=== PATIENT | female | born 1985 | race Caucasian/White ===

== ENCOUNTER 2018-06-13 08:38 | Emergency (ER) | payer OTHER ==
--- NOTE | 2018-06-13 10:01 | RAD ---
RIGHTS RIGHT SIDED GREATER/EQUAL TWO VIEWS STANDARD: History: Lateral chest wall pain. Comparison: 03-04-18 FINDINGS: No acute displaced right sided rib fracture. IMPRESSION: No acute displaced right sided rib fracture. POS: [facility]
--- NOTE | 2018-06-13 13:14 | ULT ---
RIGHT UPPER EXTREMITY VENOUS DUPLEX ULTRASOUND INCLUDING COLOR AND SPECTRAL DOPPLER IMAGING: History: 32-year-old female with history of right arm pain and right shoulder pain. Subclavian catheter is in place. FINDINGS: Right upper extremity including the right internal jugular vein, subclavian vein, axillary vein, brac hial vein, and radial and ulnar veins as well as the cephalic and basilic veins demonstrate no intral uminal thrombus. There is normal compressibility and augmentation. There is a catheter noted within t he right subclavian vein. IMPRESSION: No evidence for right upper extremity deep venous thrombosis. POS: [facility]
--- NOTE | 2018-06-13 18:01 | ULT ---
SOFT TISSUE ULTRASOUND: 06/13/18 HISTORY: Palpable mass near the scapula on the right side. Patient has bone cancer that was removed from her l eg several months ago. COMPARISON: None. TECHNIQUE: Targeted sonographic imaging of the region of concern is performed. Static images are reviewed. FINDINGS: Static images demonstrates normal soft tissue echotexture. No definite solid or cystic masses. Better interrogation with nonemergent MRI is recommended. IMPRESSION: As above. Consider nonemergent MRI. POS: [facility]
== END 2018-06-13 12:56 | disposition home or self-care (01) ==
LOC: ERS 08:38
DX: M96.841 Postprocedural hematoma of a musculoskeletal structure following other procedure (principal); F17.210 Nicotine dependence, cigarettes, uncomplicated; F41.9 Anxiety disorder, unspecified

== ENCOUNTER 2018-12-06 22:55 | Inpatient (IN) | payer BC ==
[2018-12-07 01:16] VITALS: BMI 25.9
[2018-12-07] MEDS ORDERED: Senokot S 8.6-50 MG TAB PO PRN (01:34)
[2018-12-07] MEDS: Cefepime 2 GM in Sodium Chloride 0.9% 100 ML IVPB SCH ×3 (02:06→17:47)
[2018-12-07] MEDS: Sodium Chloride 0.9% 1,000 ML IV SCH (02:07)
--- NOTE | 2018-12-07 02:26 | HP ---
CHIEF COMPLAINT: Fever. HISTORY OF PRESENT ILLNESS: The patient is a 33-year-old female with a history of osteosarcoma, currently getting chemotherapy at [facility]. The patient stated that she had a fever today of 102. She also has been feeling chills and has been having body aches and pains and also feeling fatigued. The patient stated that she also has some left-sided upper molar and lower molar teeth pain; however, she attributed that to her doxorubicin treatment. She denies any nausea, vomiting, any abdominal pain, any diarrhea, any cough or any dysuria. PAST MEDICAL HISTORY: She has a history of malignancy of osteosarcoma. She is currently on chemotherapy. Her last therapy was on Sunday in [facility] and she also received Neulasta. PAST SURGICAL HISTORY: She has had a dermoid cyst removed. She has had a history of C-sections and a history of orthopedic surgery of her right foot and a tonsillectomy. Also had a femur surgery in November of 2018. REVIEW OF SYSTEMS: All negative for the ones mentioned above in HPI. SOCIAL HISTORY: She denies any alcohol use, any drug use. She does smoke 1/4 pack per day. She is a full code. Lives with her family. ALLERGIES: SHE IS ALLERGIC TO ZOFRAN AND MORPHINE. MEDICATIONS: 1. She takes gabapentin 300 mg three times daily. 2. Multivitamin daily. PHYSICAL EXAMINATION: VITAL SIGNS: Temperature of 99.6, 100, pulse 106/65, 99% on room air. GENERAL: She is awake, alert, and oriented x3. Does not appear in distress. HEENT: Normocephalic, atraumatic. Pupils equal, react to light. She does have some pain upon palpation to her left maxillary area. She does have some sores underneath her tongue. She does have tongue ring. Some pain upon palpation to her left upper and lower molar teeth. CV: S1 and S2 present. No murmurs, rubs, or gallops. LUNGS: Clear to auscultation. No rhonchi or wheezes noted. ABDOMEN: Soft and nontender. Bowel sounds are present x2. EXTREMITIES: No edema. Pedal pulses are present x2. NEUROVASCULAR: No focal deficits noted. SKIN: She has some tattooing, otherwise no cuts, lesions, or bruises noted. LABORATORY RESULTS: WBCs of 0.5, hemoglobin of 10.6, hematocrit of 32.0, platelets are 16. Chemistries sodium of 136, potassium of 4.2, BUN of 19, creatinine 0.88. IMAGING: She had a chest x-ray in the ER, which did not show any acute abnormalities. ASSESSMENT AND PLAN: The patient is a very pleasant 33-year-old female who presents to the hospital with fever. 1. Neutropenic fever. The patient is currently on methotrexate and doxorubicin. Her last treatment was on Sunday. She also received a Neulasta on Sunday. The patient comes in with fever. She also has some pain on her left upper molar and left lower molar, other than that no source of infection that has been noted. We will start her on cefepime and vancomycin. If her pain worsens, may consider getting a CT of the facial or also a panoramic CT to get a better view of her teeth. Blood cultures were sent. Urine did not show any acute abnormalities. Chest x-ray was normal. Blood cultures are again pending. 2. Thrombocytopenia that is her baseline. However, in 2018, her platelets were 39; however, currently 16 and she does not get transfusions until she was less than 10. 3. Leukopenia. Most likely secondary to most likely secondary to her chemotherapy. We will continue to monitor. 4. Deep venous thrombosis prophylaxis. We will put the patient on some sequential compression devices. 5. I will also start her on some IV fluids and continue to monitor her. Job ID: [id number]
[2018-12-07] MEDS: Vancomycin HCl 1 GM in Premix Bag 1 BAG IVPB SCH ×2 (04:11→14:15)
[2018-12-07] MEDS: Acetaminophen 325 MG TAB PO PRN ×3 (04:22→21:24)
[2018-12-07] MEDS ORDERED: Promethazine HCl 25 MG/ML VIAL IM/IV PRN (04:34)
[2018-12-07 04:47] LABS: Hemoglobin 9.8 g/dL (12.0-16.0); Mean Corpuscular HGB CONC 34.3 g/dL (32.0-36.0); Mean Corpuscular Hemoglobin 33.1 pg (27.0-31.0); Mean Corpuscular Volume 96.5 fL (78.0-98.0); Platelet Count 12 thou/uL (130-400); RBC Distribution Width 14.2 % (11.5-14.5); Red Blood Cell (RBC) Count 2.95 mill/uL (4.20-5.40); Reflex for Review?? NO; White Blood Cell (WBC) Count 0.4 thou/uL (4.8-10.8)
[2018-12-07 05:00] LABS: Anion Gap 11 mmol/L (10-20); BUN (Urea Nitrogen) 17 mg/dL (7.0-18.7); Calc. Creatinine Clearance 90 mL/min (70-130); Calcium 9.1 mg/dL (7.8-10.44); Carbon Dioxide 25 mmol/L (22-29); Chloride 105 mmol/L (98-107); Estimated GFR-MDRD 72; Glucose 112 mg/dL (70-105); Potassium 4.6 mmol/L (3.5-5.1); Sodium 136 mmol/L (136-145)
[2018-12-07 05:06] LABS: Hypochromia SLIGHT = 6-15 cells (100X) (0-5/hpf); MDiff Complete? YES; Platelet Morphology Comment Appears Decreased
[2018-12-07] MEDS ORDERED: Enoxaparin Sodium 40 MG/0.4 ML SYRINGE SC SCH (09:00)
[2018-12-07] MEDS ORDERED: Vancomycin HCl 1 GM in Premix Bag 1 BAG IVPB SCH (09:00)
[2018-12-07] MEDS ORDERED: Prevnar 13-Val Conj/PF 0.5 ML SYRINGE IM ONE (09:00)
[2018-12-07] MEDS: Gabapentin 300 MG CAP PO SCH ×3 (09:07→21:24)
[2018-12-07] MEDS: Multivit, Therapeutic 1 TAB PO SCH (09:07)
--- NOTE | 2018-12-07 11:15 | PDOC.PN ---
- Subjective Encounter Start Date: 12/07/18 Encounter Start Time: 11:12 Patient seen and examined, no new issues or complaints, all questions answered. - Objective Resuscitation Status - Order Detail: 12/07/18 01:34 Resuscitation Status Routine Resuscitation Status: FULL: Full Resuscitation Vital Signs & Weight: Vital Signs (12 hours) Temp Pulse Resp BP Pulse Ox 12/07/18 08:00 99.0 F 106 H 16 98/61 96 12/07/18 07:00 98.7 F 12/07/18 01:11 98.4 F 120 H 18 111/58 L 96 Weight Weight 142 lb 1 oz I&O: 12/06/18 12/07/18 12/08/18 06:59 06:59 06:59 Intake Total 200 Balance 200 Result Diagrams: 12/07/18 04:28 12/07/18 04:28 Phys Exam - Physical Examination Constitutional: NAD HEENT: PERRLA, moist MMs, sclera anicteric Neck: no nodes, no JVD, supple Respiratory: no wheezing, no rales, no rhonchi Cardiovascular: RRR, no significant murmur, no rub Gastrointestinal: soft, non-tender, no distention Musculoskeletal: no edema, pulses present Dx/Plan (1) Neutropenia Code(s): D70.9 - NEUTROPENIA, UNSPECIFIED Status: Acute (2) Neutropenic fever Code(s): D70.9 - NEUTROPENIA, UNSPECIFIED; R50.81 - FEVER PRESENTING WITH CONDITIONS CLASSIFIED ELSEWHERE Status: Acute (3) Osteosarcoma Code(s): C41.9 - MALIGNANT NEOPLASM OF BONE AND ARTICULAR CARTILAGE, UNSP Status: Acute - Plan * dental pain improved * afebrile * on abx * cultures pending * repeat labs in AM * will adjust plan of care based on work up results * case and plan d/w patient at length, she understood and agreed with this plan.
--- NOTE | 2018-12-07 17:49 | CT ---
EXAM: CT Neck Soft Tissue WO Con PROVIDED CLINICAL HISTORY: Neck and jaw pain. Swelling. Symptoms greater on left. COMPARISON: None FINDINGS: This examination is limited secondary to the lack of intravenous contrast. The bilateral parotid and submandibular glands demonstrate a grossly normal nonenhanced CT appearance . There is a subcentimeter hypodense nodule within the right lobe of the thyroid gland which cannot be further characterized on this exam. The prevertebral, retropharyngeal, and bilateral carotid spaces have a grossly normal nonenhanced CT appearance. The pharynx and hypopharynx demonstrate a grossly normal nonenhanced appearance. No enlarged lymph nodes or mass is seen within the neck bilaterally. A right subclavian central venous catheter is noted in place. The tip is not visualized, but the dist al portion of the catheter is seen within the SVC. There is mild atelectasis present in the visualized upper lung zones. No discrete pulmonary nodule or mass is visualized. The osseous structures demonstrate a normal CT appearance. There are subcentimeter increased density foci seen within the posterior aspect left mandible in the region of the angle of the mandible with subtle surrounding lucency. Findings may represent unerupted wisdom teeth.. IMPRESSION: 1. Limited examination due to the lack of intravenous contrast, but no definite acute findings are se en in the neck. No enlarged lymph nodes or mass is seen. 2. Subcentimeter hypodense nodule right lobe of the thyroid gland.
[2018-12-07 20:40] LABS: Vancomycin, Trough 30.9 ug/mL
[2018-12-08] MEDS: Acetaminophen 325 MG TAB PO PRN ×3 (02:45→15:27)
[2018-12-08] MEDS: Sodium Chloride 0.9% 1,000 ML IV SCH ×2 (02:46→22:34)
[2018-12-08] MEDS: Cefepime 2 GM in Sodium Chloride 0.9% 100 ML IVPB SCH ×3 (02:46→19:22)
[2018-12-08 04:26] LABS: Hemoglobin 9.1 g/dL (12.0-16.0); Mean Corpuscular HGB CONC 34.2 g/dL (32.0-36.0); Mean Corpuscular Hemoglobin 33.1 pg (27.0-31.0); Mean Corpuscular Volume 96.6 fL (78.0-98.0); Mean Platelet Volume 9.3 fL (7.4-10.4); Platelet Count 6 thou/uL (130-400); RBC Distribution Width 13.7 % (11.5-14.5); Red Blood Cell (RBC) Count 2.74 mill/uL (4.20-5.40); White Blood Cell (WBC) Count 0.5 thou/uL (4.8-10.8)
--- NOTE | 2018-12-08 04:35 | PDOC.EVN ---
Event Note - Event Note Event Note: RN called for low platelets. Transfuse 1 unit apheretic platelets.
[2018-12-08 04:41] LABS: Anion Gap 8 mmol/L (10-20); BUN (Urea Nitrogen) 19 mg/dL (7.0-18.7); Calc. Creatinine Clearance 87 mL/min (70-130); Calcium 8.9 mg/dL (7.8-10.44); Carbon Dioxide 26 mmol/L (22-29); Chloride 107 mmol/L (98-107); Estimated GFR-MDRD 69; Glucose 111 mg/dL (70-105); Potassium 4.3 mmol/L (3.5-5.1); Sodium 137 mmol/L (136-145)
[2018-12-08 04:48] LABS: Hypochromia SLIGHT = 6-15 cells (100X) (0-5/hpf); MDiff Complete? YES; Platelet Morphology Comment Appears Decreased
[2018-12-08] MEDS: Multivit, Therapeutic 1 TAB PO SCH (08:08)
[2018-12-08] MEDS: Gabapentin 300 MG CAP PO SCH ×3 (08:08→21:22)
--- NOTE | 2018-12-08 14:17 | PDOC.PN ---
- Subjective Encounter Start Date: 12/08/18 Encounter Start Time: 14:14 Patient seen and examined, states her left jaw is continuing to hurt, no other issues or complaints. Patient seen and examined, all questions answered. - Objective Resuscitation Status - Order Detail: 12/07/18 01:34 Resuscitation Status Routine Resuscitation Status: FULL: Full Resuscitation Vital Signs & Weight: Vital Signs (12 hours) Temp Pulse Resp BP Pulse Ox 12/08/18 12:10 98.6 F 96 18 101/63 93 L 12/08/18 08:00 98.8 F 98 18 98/57 L 98 Weight Weight 142 lb 1 oz I&O: 12/07/18 12/08/18 12/09/18 06:59 06:59 06:59 Intake Total 200 1600 0 Balance 200 1600 0 Result Diagrams: 12/08/18 03:50 12/08/18 03:50 Phys Exam - Physical Examination Constitutional: NAD HEENT: PERRLA, moist MMs, sclera anicteric left side petiechial lesions on inner cheek left jaw appears slightly swollen Neck: no nodes, no JVD, supple Respiratory: no wheezing, no rales, no rhonchi Cardiovascular: RRR, no significant murmur, no rub Gastrointestinal: soft, non-tender, no distention Musculoskeletal: no edema, pulses present Dx/Plan (1) Neutropenia Code(s): D70.9 - NEUTROPENIA, UNSPECIFIED Status: Acute (2) Neutropenic fever Code(s): D70.9 - NEUTROPENIA, UNSPECIFIED; R50.81 - FEVER PRESENTING WITH CONDITIONS CLASSIFIED ELSEWHERE Status: Acute (3) Osteosarcoma Code(s): C41.9 - MALIGNANT NEOPLASM OF BONE AND ARTICULAR CARTILAGE, UNSP Status: Acute - Plan * Patient continues to have jaw pain, will obtain MRI to evaluate for soft tissue damage * BP stable * cont abx for now * platelets low, given platelets overnight * repeat labs in AM * cont neutropenic precautions, WBC count at 0.6 from 0.4 * Patient advised to email her main oncologist at [facility] as the patient would benefit from transfer to [facility] at this point, will see if this is possible to be done tomorrow as today is a sunday * case and plan d/w patient at length, she understood and agreed with this plan.
[2018-12-08] MEDS: Vancomycin HCl 1 GM in Premix Bag 1 BAG IVPB SCH (21:21)
[2018-12-09] MEDS: Sodium Chloride 0.9% 1,000 ML IV SCH ×2 (00:15→19:53)
[2018-12-09] MEDS: Guaifenesin DM 100-10/5 ML UDCUP PO PRN ×2 (00:23→16:52)
[2018-12-09] MEDS: Cefepime 2 GM in Sodium Chloride 0.9% 100 ML IVPB SCH ×3 (02:16→19:26)
[2018-12-09 04:47] LABS: Hemoglobin 8.8 g/dL (12.0-16.0); Mean Corpuscular HGB CONC 33.2 g/dL (32.0-36.0); Mean Corpuscular Volume 96.5 fL (78.0-98.0); Mean Platelet Volume 7.6 fL (7.4-10.4); Platelet Count 33 thou/uL (130-400); RBC Distribution Width 13.7 % (11.5-14.5); Red Blood Cell (RBC) Count 2.76 mill/uL (4.20-5.40); White Blood Cell (WBC) Count 0.9 thou/uL (4.8-10.8)
[2018-12-09 04:59] LABS: Anion Gap 10 mmol/L (10-20); BUN (Urea Nitrogen) 13 mg/dL (7.0-18.7); Calc. Creatinine Clearance 89 mL/min (70-130); Calcium 9.6 mg/dL (7.8-10.44); Carbon Dioxide 28 mmol/L (22-29); Chloride 105 mmol/L (98-107); Estimated GFR-MDRD 71; Glucose 144 mg/dL (70-105); Potassium 3.9 mmol/L (3.5-5.1); Sodium 139 mmol/L (136-145)
[2018-12-09 05:10] LABS: Band 8 % (5-11); Eosinophils 4 % (0-10); Lymphocytes 60 % (21-51); MDiff Complete? YES; Monocytes 4 % (0-10); Neutrophil 24 % (42-75); Platelet Morphology Comment Appears Decreased
[2018-12-09] MEDS: Multivit, Therapeutic 1 TAB PO SCH (08:29)
[2018-12-09] MEDS: Gabapentin 300 MG CAP PO SCH ×3 (08:29→20:14)
[2018-12-09] MEDS: Vancomycin HCl 1 GM in Premix Bag 1 BAG IVPB SCH ×2 (08:30→20:14)
--- NOTE | 2018-12-09 12:56 | MRI ---
MRI NECK WITH AND WITHOUT CONTRAST: DATE: 12/09/2018 HISTORY: 33-year-old female with neutropenic patient with left jaw pain and swelling. Rule out abscess. FINDINGS: At the posterior aspect of the left mandibular body at the mandibular angle, there is an approximatel y 7 x 4 x 3 mm smoothly circumscribed oval mass with signal void on all pulse sequences, consistent with single root of an unerupted molar, presumably lower wisdom tooth. The other root and the crown a re absent. This is surrounded by a circumferential halo of hyperintense T2 signal and enhancement. Slightly posterior and slightly lateral to that, there is another mass of signal void that measures a pproximately 8 x 7 x 7 mm entirely embedded in the bone of the left mandibular posterior body-angle. This is also surrounded by a halo of T2 hyperintense signal and enhancement. This is prob ably another unerupted, malformed molar tooth. This halo of inflammation probably communicates through a tiny osseous cortical defect at the lingual side of the mandible to the adjacent submandibular space where there is a very small pocket of abnormal enhancement and hyperintense T2 signal. Anterior to that, there is a 7 x 9 x 12 mm inflamed left submandibular lymph node (level 1B) that is T2 hyperintense and enhances strongly. There is a thin layer of hyperintense T2 signal and enhancement abutting a broad length of buccal sandra e cortex of the left mandibular body. The bilateral submandibular glands themselves, sublingual space, parapharyngeal space, parotid space, parapharyngeal space, pharyngeal mucosal space, retropharyngeal space, and posterior cervical space, are normal. No drainable abscess. No other lymphadenopathy. IMPRESSION: Evidence for odontogenic inflammatory (presumably infectious) process involving both the buccal side and luminal side of the left mandible, related to 2 unerupted odontoid bodies entirely embedded within the mandible. One of them has the configuration of a single root (fragment ?)of a molar tooth, while the other appears malformed or hypoplastic. See above details.
--- NOTE | 2018-12-09 15:25 | PDOC.PN ---
- Subjective Encounter Start Date: 12/09/18 Encounter Start Time: 15:24 Subjective: feels well. no new complaint. eager to go home -: feels that she has mucositis inner cheeck near tooth R side - Objective Resuscitation Status - Order Detail: 12/07/18 01:34 Resuscitation Status Routine Resuscitation Status: FULL: Full Resuscitation MAR Reviewed: Yes Vital Signs & Weight: Vital Signs (12 hours) Temp Pulse Resp BP Pulse Ox 12/09/18 12:00 98.1 F 98 18 112/59 L 93 L 12/09/18 08:15 98.0 F 85 18 100/54 L 92 L 12/09/18 08:00 92 L 12/09/18 04:36 97 12/09/18 04:25 99.1 F 104 H 16 93/55 L 89 L Weight Weight 142 lb 1 oz I&O: 12/08/18 12/09/18 12/10/18 06:59 06:59 06:59 Intake Total 1600 1900 Balance 1600 1900 Result Diagrams: 12/09/18 04:30 12/09/18 04:30 Additional Labs: Microbiology 12/06/18 19:12 Venous blood - Left Arm Blood Culture - Preliminary NO GROWTH AT 48 HOURS 12/06/18 19:00 Venous blood - Right Arm Blood Culture - Preliminary NO GROWTH AT 48 HOURS Laboratory Tests 12/07/18 12/08/18 12/09/18 04:28 03:50 04:30 WBC 0.4 L* 0.5 L* 0.9 L* Plt Count 12 L* 6 L* 33 L Radiology Reviewed by me: Yes (MRI jaw-left mandibular inflammation w unerupted odontoid) Phys Exam - Physical Examination Constitutional: NAD HEENT: PERRLA, moist MMs, sclera anicteric, oral pharynx no lesions no mucosal lesions. mild gum swelling R molar in the back Neck: no nodes, no JVD, supple, full ROM Respiratory: no wheezing, no rales, no rhonchi, clear to auscultation bilateral Cardiovascular: RRR, no significant murmur, no rub Gastrointestinal: soft, non-tender, no distention, positive bowel sounds Musculoskeletal: no edema, pulses present Neurological: non-focal, normal sensation, moves all 4 limbs Psychiatric: normal affect, A&O x 3 Skin: no rash Dx/Plan (1) Neutropenic fever Code(s): D70.9 - NEUTROPENIA, UNSPECIFIED; R50.81 - FEVER PRESENTING WITH CONDITIONS CLASSIFIED ELSEWHERE Status: Acute Comment: Clinically better. cont Empiric IV ABx.On vanco and Cefepime (2) Neutropenia Code(s): D70.9 - NEUTROPENIA, UNSPECIFIED Status: Acute Comment: improving.monitor (3) Pancytopenia due to chemotherapy Code(s): D61.810 - ANTINEOPLASTIC CHEMOTHERAPY INDUCED PANCYTOPENIA Status: Acute Comment: All counts improving. Monitor. s/p Platelet transfusion (4) Osteosarcoma Code(s): C41.9 - MALIGNANT NEOPLASM OF BONE AND ARTICULAR CARTILAGE, UNSP Status: Chronic Comment: on ChemoRx at [facility] - Plan continue antibiotics, DVT proph w/SCDs Will get Oncology amd ID recs given immunocpmpromised Pt -: MRI shows Mandibular inflammation but no neoplastic process -: HD stable -: cont ABx for now -: labs in am. * . Review of Systems - Review of Systems Constitutional: negative: fever, chills, sweats, weakness, malaise, other ENT: Mouth Pain (R sided molar tooth base) Respiratory: negative: Cough, Dry, Shortness of Breath, Hemoptysis, SOB with Excertion, Pleuritic Pain, Sputum, Wheezing Cardiovascular: negative: chest pain, palpitations, orthopnea, paroxysmal nocturnal dyspnea, edema, light headedness, other Gastrointestinal: negative: Nausea, Vomiting, Abdominal Pain, Diarrhea, Constipation, Melena, Hematochezia, Other Genitourinary: negative: Dysuria, Frequency, Incontinence, Hematuria, Retention , Other Musculoskeletal: negative: Neck Pain, Shoulder Pain, Arm Pain, Back Pain, Hand Pain, Leg Pain, Foot Pain, Other Skin: negative: Rash, Lesions, [place], Bruising, Other Neurological: negative: Weakness, Numbness, Incoordination, Change in Speech, Confusion, Seizures, Other - Medications/Allergies Allergies/Adverse Reactions: Allergies Allergy/AdvReac Type Severity Reaction Status Date / Time morphine Allergy Verified 12/07/18 01:49 ondansetron [From Zofran] Allergy Verified 12/07/18 01:49 Medications: Current Medications Acetaminophen (Tylenol) 650 mg PO Q4H PRN PRN Reason: Headache/Fever/Mild Pain (1-3) Last Admin: 05/19/19 15:27 Dose: 650 mg Gabapentin (Neurontin) 300 mg PO TID [facility] Last Admin: 12/09/18 08:29 Dose: 300 mg Guaifenesin/Dextromethorphan (Robitussin Dm) 15 ml PO Q4H PRN PRN Reason: Cough Last Admin: 12/09/18 00:23 Dose: 15 ml Cefepime HCl 2 gm/ Sodium (Chloride) 100 mls @ 200 mls/hr IVPB 0200,1000,1800 [facility] Last Admin: 12/09/18 10:19 Dose: 100 mls Sodium Chloride (Normal Saline 0.9%) 1,000 mls @ 50 mls/hr IV .Q20H [facility] Last Admin: 12/09/18 00:15 Dose: 1,000 mls Vancomycin HCl 1 gm/ Device 200 mls @ 200 mls/hr IVPB Q12HR [facility] Last Admin: 12/09/18 08:30 Dose: 200 mls Miscellaneous Medication (Pharmacy To Dose) 1 each IVPB PRN PRN PRN Reason: Pharmacy to dose Multivitamins (Theragran) 1 tab PO DAILY [facility] Last Admin: 12/09/18 08:29 Dose: 1 tab Promethazine HCl (Phenergan) 12.5 mg IM/IV Q6H PRN PRN Reason: Nausea/Vomiting Last Admin: 12/07/18 04:52 Dose: 12.5 mg Senna/Docusate Sodium (Senokot S) 2 tab PO BID PRN PRN Reason: Constipation Sodium Chloride (Flush - Normal Saline) 10 ml IVF PRN PRN PRN Reason: Saline Flush Last Admin: 12/08/18 08:09 Dose: 10 ml
[2018-12-09] MEDS: Acetaminophen 325 MG TAB PO PRN (18:19)
[2018-12-09 20:14] VITALS: TEMP 98
[2018-12-09 20:15] VITALS: BP 116/56
--- NOTE | 2018-12-11 05:18 | DIS ---
DATE OF ADMISSION: 12/07/2018 DATE OF DISCHARGE: 12/09/2018 PRIMARY CARE PHYSICIAN: Uriel Clarke at [facility]. DISCHARGE DIAGNOSES: 1. Neutropenic fever. 2. Pancytopenia due to cancer, chemotherapy. 3. Osteosarcoma, currently on chemotherapy at [facility]. 4. Jaw pain due to unerupted molar teeth in left mandible. DISCHARGE MEDICATIONS: 1. Augmentin 875 mg p.o. b.i.d. for 7 days. 2. Florastor 250 mg daily. 3. Resume gabapentin 300 mg p.o. t.i.d. 4. Multivitamin. PROCEDURES DONE IN THE HOSPITAL: 1. CT scan of the neck, which did not show any acute findings. Some subcentimeter hypodense nodule of the right lobe of the thyroid gland was seen. 2. Low resolution MRI with and without contrast of the neck which shows odontogenic inflammatory presumable infectious process involving both the buccal and luminal side of the left mandible related to 2 unerupted odontoid bodies entirely embedded within the mandible. HISTORY OF PRESENTING ILLNESS: Ms. Landaverde is a 33-year-old female who is currently a patient at [facility]. She is undergoing chemotherapy for osteosarcoma, who presented to the emergency room with complaints of fever. She has been having chills, body aches, and pains and was feeling fatigued and was having some jaw pain on the left lower jaw. She tried to go to [facility], but because they were full, she came to our facility. Upon presentation, her WBC was 0.5, hemoglobin 10.6, platelet count of 16. Potassium 4.2, BUN 19, creatinine 0.88. Chest x-ray was unremarkable. She had a temperature of 99.6 upon presentation. She was started on empiric IV antibiotic for neutropenic fever. CT was ordered and blood cultures were drawn. Please see admission history and physical dictated by Dr. Guerrero on 12/07/2018. HOSPITAL COURSE: The patient had a neck CT done which was unremarkable, but because of the jaw pain, a dedicated MRI of the jaw was ordered, which showed unerupted molar teeth in the left lower jaw with mildly enlarged left submandibular lymph node. The patient, however, remained afebrile throughout the rest of her hospitalization and her blood cultures remain negative. Her counts were followed and her WBC improved from 0.4 to 0.9. Her platelet count dropped from 12 to 6 for which she received 1 unit of platelet and it improved to 33. Her hemoglobin remained in the 8.8 to 9.8 range. As of this morning, the patient is hemodynamically stable, afebrile, and is eager to go home. I discussed the MRI findings in detail with her and the recommendation that she sees an Infectious Disease physician. Unfortunately, there is no infectious disease coverage in our facility for the whole week. I have checked with our Infectious Disease specialist, Dr. Quiroga who is out of town till 12/13/2018. The patient does not want to stay in the hospital till then. She is a compliant patient. I discussed extensively about the possibility that this infection if worsen can cause more fevers and can progress to a bone infection of the mandible. She understands this and at this time is not willing to stay the entire week to get ID evaluation as she is pain and fever free. I also discussed outpatient referral to oromaxillofacial surgeon and she agreed to follow up with that. Other than that, she is encouraged to go to [facility] as soon as possible as an outpatient for her followup appointments. She was treated with IV vancomycin and cefepime in the hospital and is being discharged on Augmentin for now. At this time, there is no clear evidence of mandibular involvement from an infectious process. She is strictly instructed to come back to the emergency room if she spikes a fever or if her jaw pain worsens. She verbalized understanding. She will be discharged. Total time spent in the discharge of this patient 38 minutes, including the time trying to coordinate ID followup in-house. Job ID: [id number]
== END 2018-12-09 22:00 | disposition home or self-care (01) | DRG 809 ==
LOC: ERS 22:55 → ONC 12-07 01:00 → OBSVTOIN 12-07 01:03 → ONC 12-07 01:03
PROVIDERS: ADMIT Internal Medicine; ATTEND Internal Medicine
DX: D70.9 Neutropenia, unspecified (principal); C41.9 Malignant neoplasm of bone and articular cartilage, unspecified; R50.81 Fever presenting with conditions classified elsewhere; D69.6 Thrombocytopenia, unspecified
CPT/HCPCS: 36415; 36430; 70490; 70543; 80048; 80202; 85025; 86850; 86900; 86901; 99284; J0692; J2550; J3370; J3490; P9035

== ENCOUNTER 2019-01-28 15:56 | Emergency (ER) | payer BC ==
[2019-01-28 16:50] LABS: Hemoglobin 8.6 g/dL (12.0-16.0); Mean Corpuscular HGB CONC 34.4 g/dL (32.0-36.0); Mean Corpuscular Hemoglobin 33.7 pg (27.0-31.0); Mean Platelet Volume 8.9 fL (7.4-10.4); Platelet Count 11 thou/uL (130-400); RBC Distribution Width 12.6 % (11.5-14.5); Red Blood Cell (RBC) Count 2.54 mill/uL (4.20-5.40); White Blood Cell (WBC) Count 0.6 thou/uL (4.8-10.8)
[2019-01-28 17:06] LABS: Anion Gap 10 mmol/L (10-20); BUN (Urea Nitrogen) 18 mg/dL (7.0-18.7); Calc. Creatinine Clearance 0 mL/min (70-130); Calcium 8.9 mg/dL (7.8-10.44); Carbon Dioxide 25 mmol/L (22-29); Chloride 105 mmol/L (98-107); Estimated GFR-MDRD 80; Glucose 97 mg/dL (70-105); Potassium 3.8 mmol/L (3.5-5.1); Sodium 136 mmol/L (136-145)
[2019-01-28 17:10] LABS: Eosinophils 4 % (0-10); Lymphocytes 90 % (21-51); MDiff Complete? YES; Monocytes 6 % (0-10); Platelet Morphology Comment Appears Decreased
--- NOTE | 2019-01-28 18:03 | CT ---
CT OF BRAIN WITHOUT CONTRAST: 01/28/19 COMPARISON: None. HISTORY: Osteosarcoma. Patient needs a blood transfusion with very low platelet count. TECHNIQUE: Multiple contiguous axial images were obtained in a CT of the brain without contrast. FINDINGS: The brain is normal in morphology and attenuation without focal lesions or confluent areas of infarct ion. There is no evidence of hydrocephalus, intracranial hemorrhage or extra-axial fluid collections. The calvarium and overlying soft tissues are unremarkable. The visualized paranasal sinuses and masto id air cells are well aerated. IMPRESSION: No evidence of acute intracranial abnormality. POS: [facility]
== END 2019-01-28 17:27 | disposition home or self-care (01) ==
LOC: ERS 15:56
DX: D69.6 Thrombocytopenia, unspecified (principal); F41.9 Anxiety disorder, unspecified; F17.210 Nicotine dependence, cigarettes, uncomplicated
CPT/HCPCS: 36430; 70450; 80048; 85025; 86850; 86900; 86901; P9035

== ENCOUNTER 2019-01-30 23:26 | Emergency (ER) | payer BC ==
[2019-01-31] MEDS ORDERED: Sterile Water 10 ML VIAL FS SCH (00:12)
[2019-01-31] MEDS ORDERED: Activase 2 MG VIAL CATH SCH (00:12)
== END 2019-01-31 03:38 | disposition home or self-care (01) ==
LOC: ERS 23:26
DX: T82.898A Other specified complication of vascular prosthetic devices, implants and grafts, initial encounter (principal); F41.9 Anxiety disorder, unspecified; F17.210 Nicotine dependence, cigarettes, uncomplicated; Z79.899 Other long term (current) drug therapy
CPT/HCPCS: 96374; J2997